=== PATIENT | female | born 1965 | race Caucasian/White ===

== ENCOUNTER → 2016-09-02 | Outpatient (CLI) | payer BC ==
[~2016-09-02] MED LIST: GADOBUTROL 10mMol/10ml INJECTION IV ONE; SALINE FLUSH 10ml SYRINGE ONE; TRAM50TA4 PO
--- NOTE | 2016-09-02 12:12 | DI ---
Indication: ITS.REASON: M51.26 HNP (HERNIATED NUCLEUS PULPOSUS), LUMBAR MRI LUMBAR SPINE W/WO CONTRAST: Comparison: 03/06/2016 MRI lumbar spine Technique: T1 and T2-weighted image sequences were performed initially without then after intravenous contrast Findings: Patient shows no acute vertebral body fractures or change in the alignment since the previous exam. The patient continues to show the previously described cystic changes at the right side at L5 S1. This was described on previous MR images. They do not seem to have changed significantly since the previous study. After intravenous contrast the cystic structures do not specifically enhance. Patient does show some increased edematous change in the right pedicle at this level. Previously this reduction some cystic change. Patient showed disc space bulging at this level slightly more prominently to the left side and the right. After contrast there does seem to be some diffuse enhancement around the region probably due to some diffuse granulomatous change. Just mild disc space bulging is identified at L2-3 where there is some loss of usual bright signal although, no marked compromise of the canal diameter. Just minimal bulging seen at L3-4 and L4-5 levels although, these levels to show some loss of the usual bright signal. Mild broad-based bulging is seen at L5-S1 slightly greater to the left. It is not leading to marked compromise of the canal diameter. No significant new fractures or change in the overall alignment appreciated. Impression: 1. Patient continues to demonstrate some cystic changes some particularly to the right-sided L5-S1. There is also some edematous changes within the right transverse process at this level. Findings seem to have increased slightly since the previous exam. 2. Rest of of the discs and disc spaces tshowed some mild degeneration but no significant cystic changes identified like the right-sided L5-S1 noted. 3. No change in the bony alignment or significant suggestion of fracture. .
== END ==
LOC: IMA 09:35
PROVIDERS: ATTEND Neurological Surgery
DX: M51.26 Other intervertebral disc displacement, lumbar region (principal); R93.7 Abnormal findings on diagnostic imaging of other parts of musculoskeletal system
CPT/HCPCS: 72158; A9585